=== PATIENT | female | born 1975 | race Caucasian/White ===

== ENCOUNTER → 2017-05-31 | Outpatient (CLI) | payer OTHER ==
[~2017-05-31] MED LIST: HYDR2TAB29 PO; IBUP-1222 PO; INSU100I18 SC; LEVO88TA4 PO; NIFE60TA11 PO; NPH,100V SC; OMNIPAQUE 350 MG/ML, 100ML BOTTLE ONE; PREN1TAB60 PO
== END | disposition home or self-care (01) ==
LOC: RAD 12:23
PROVIDERS: ATTEND Family Medicine
DX: R10.9 Unspecified abdominal pain (principal)
CPT/HCPCS: 74160; Q9967